=== PATIENT | female | born 1965 ===

== ENCOUNTER 2017-07-17 07:16 | Day surgery (SDC) | payer SELFPAY ==
[2017-07-17] MEDS ORDERED: Tobramycin/Dexamethasone OPHT OINT ONE (07:45)
[2017-07-17] MEDS ORDERED: Lidocaine/Epinephrine 1% 1:100000 10 ML IJ ONE (07:45)
[2017-07-17] MEDS ORDERED: Lidocaine 2% Jelly (Uro-Jet) ONE (07:45)
[2017-07-17 07:47] VITALS: O2SAT 100
[2017-07-17] MEDS ORDERED: Povidone Iodine Ophthalmic 5% Soln ONE (07:50)
[2017-07-17] MEDS ORDERED: Tetracaine 0.5% Ophth (OR ONLY) ONE (07:50)
[2017-07-17 10:04] VITALS: BP 139/59; PULSE 65; RESP 16; TEMP 98.2
--- NOTE | 2017-07-18 06:43 | OP ---
PROCEDURE DATE: 07/17/2017 PREOPERATIVE DIAGNOSES: RIGHT EYE 1. PTERYGIUM, RIGHT EYE. 2. CORNEAL OPACIFICATION, RIGHT EYE. POSTOPERATIVE DIAGNOSES: RIGHT EYE 1. PTERYGIUM, RIGHT EYE. 2. CORNEAL OPACIFICATION, RIGHT EYE. OPERATIVE PROCEDURE: EXCISION OF PTERYGIUM WITH CONJUNCTIVAL AUTOGRAFT AND LAMELLAR KERATECTOMY, RIGHT EYE. ANESTHESIA TYPE: Local standby. ANESTHESIOLOGIST: COMPLICATIONS: None. PROCEDURE: The patient was brought to the operating room and was prepped and draped in the usual sterile fashion. A lid speculum was placed into the eye and topical Tetracaine was used. One percent lidocaine with epinephrine was injected subconjunctivally into the body of the pterygium. A Johana scissor was used to create a small opening at the neck of the pterygium at the limbus, and then a tunnel was created beneath the pterygium. A #4-0 silk suture was placed through this tunnel and tied securely. An additional #4-0 silk suture was placed through the tunnel and in a sling fashion, was used to excise the head of the pterygium from the corneal surface. A Johana scissor was then used to excise the scleral extension of the pterygium for approximately 3-4 millimeters. Tenon's membrane was removed beneath the dissected bed and light cautery was used for hemostasis. A #57 [place] blade was then used to perform a lamellar keratectomy removing all of the opacified corneal tissue. A tea dirk was used to belarusian this surface. One percent lidocaine was used subconjunctivally in the superior aspect of the eye, and a conjunctival autograft was harvested and rotated in an anatomical fashion over the recipient bed. The graft was noted to be of excellent size for the bed, and #8-0 Vicryl sutures were used in an interrupted fashion to suture the graft in place. At the limbus both above and below, the graft was tacked down to episclera. At the end of the case a collagen shield soaked in TobraDex was placed onto the cornea, and TobraDex ointment was placed into the eye. A patch and shield were placed over the eye, and the patient was taken from the operating room in excellent condition. Stephen Kim MD [facility] # [id number]
== END 2017-07-17 10:32 | disposition home or self-care (01) ==
LOC: EDBD → C.SDS 07:16
PROVIDERS: ATTEND Ophthalmology
DX: H11.051 Peripheral pterygium, progressive, right eye (principal); H17.9 Unspecified corneal scar and opacity; E11.9 Type 2 diabetes mellitus without complications; Z79.84 Long term (current) use of oral hypoglycemic drugs